=== PATIENT | female | born 1970 | race Caucasian/White ===

== ENCOUNTER 2018-11-01 12:34 | Emergency (ER) | payer OTHER ==
[~2018-11-01] VITALS: Ht 152.4 cm; Wt 73.5 kg
[2018-11-01 12:46] VITALS: BP 136/88
[2018-11-01] MEDS ORDERED: ONDANSETRON PF 4 MG/2 ML VIAL. IV ONE (13:00)
[2018-11-01] MEDS ORDERED: IV NORMAL SALINE 1000ML BAG 1,000 ML IV ONE (13:00)
[2018-11-01] MEDS ORDERED: KETOROLAC 30 MG/ML VIAL. IV ONE (13:00)
[2018-11-01] MEDS ORDERED: FAMOTIDINE 20 MG/2 ML VIAL IVP ONE (13:00)
[2018-11-01 13:22] LABS: BASO # 0.1 x10^3/uL (0.0-0.2); BASO % 1 % (0-3); EOS # 0.1 x10^3/uL (0.0-0.7); EOS % 1 % (0-3); HEMOGLOBIN 13.4 g/dL (12.0-15.5); LYMPH # 1.7 x10^3/uL (1.0-4.8); LYMPH % 11 % (24-48); MEAN CORPUSCULAR HEMOGLOBIN 29 pg (25-35); MEAN CORPUSCULAR HGB CONC 34 g/dL (31-37); MEAN CORPUSCULAR VOLUME 83 fL (79-100); MONO # 1.1 x10^3/uL (0.0-1.1); MONO % 8 % (0-9); NEUT # 11.7 x10^3/uL (1.8-7.7); NEUT % 80 % (31-73); PLATELET COUNT 349 x10^3/uL (140-400); RED BLOOD COUNT 4.68 x10^6/uL (3.50-5.40); RED CELL DISTRIBUTION WIDTH 14.1 % (11.5-14.5); WHITE BLOOD COUNT 14.6 x10^3/uL (4.0-11.0)
[2018-11-01 13:30] LABS: CALCIUM 9.2 mg/dL (8.5-10.1); CREATININE 0.6 mg/dL (0.6-1.0); GFR 106.3; POTASSIUM 4.1 mmol/L (3.5-5.1)
[2018-11-01 13:32] LABS: PROTHROMBIN TIME PATIENT 12.9 SEC (11.7-14.0)
[2018-11-01 13:35] LABS: ALBUMIN 3.3 g/dL (3.4-5.0); ALBUMIN/GLOBULIN RATIO 0.7 (1.0-1.7); MAGNESIUM 2.2 mg/dL (1.8-2.4); TOTAL BILIRUBIN 0.3 mg/dL (0.2-1.0)
[2018-11-01] MEDS ORDERED: METR500T PO (13:58)
[2018-11-01] MEDS ORDERED: ACET-704 PO (13:58)
[2018-11-01] MEDS ORDERED: ONDA4TAB12 PO (13:58)
[2018-11-01] MEDS ORDERED: CIPR500T94 PO (13:58)
--- NOTE | 2018-11-01 13:58 | PHYS DOC ---
Past Medical History Past Medical History: Diverticulitis Past Surgical History: Hysterectomy Alcohol Use: None Drug Use: None Adult General Chief Complaint Chief Complaint: ABDOMINAL PAIN HPI HPI Patient is a 48 year old [f__sex] who presents with [] Review of Systems Review of Systems Constitutional: Denies fever or chills [] Eyes: Denies change in visual acuity, redness, or eye pain [] HENT: Denies nasal congestion or sore throat [] Respiratory: Denies cough or shortness of breath [] Cardiovascular: No additional information not addressed in HPI [] GI: Denies abdominal pain, nausea, vomiting, bloody stools or diarrhea [] : Denies dysuria or hematuria [] Musculoskeletal: Denies back pain or joint pain [] Integument: Denies rash or skin lesions [] Neurologic: Denies headache, focal weakness or sensory changes [] Endocrine: Denies polyuria or polydipsia [] All other systems were reviewed and found to be within normal limits, except as documented in this note. Current Medications Current Medications Current Medications Medications (Trade) Dose Ordered Sig/Carolin Start Time Stop Time Status Last Admin Dose Admin Famotidine (Pepcid Vial) 20 mg 1X ONCE 11/01/18 13:00 11/01/18 13:02 DC 11/01/18 13:24 20 MG Ketorolac Tromethamine (Toradol 30mg Vial) 15 mg 1X ONCE 11/01/18 13:00 11/01/18 13:02 DC 11/01/18 13:24 15 MG Ondansetron HCl (Zofran) 4 mg 1X ONCE 11/01/18 13:00 11/01/18 13:02 DC 11/01/18 13:24 4 MG Sodium Chloride 1,000 ml @ 1,000 mls/hr 1X ONCE 11/01/18 13:00 11/01/18 13:59 11/01/18 13:24 1,000 MLS/HR Allergies Allergies Allergies Coded Allergies Type Severity Reaction Last Updated Verified No Known Drug Allergies 11/01/18 No Physical Exam Physical Exam Constitutional: Well developed, well nourished, no acute distress, non-toxic appearance. [] HENT: Normocephalic, atraumatic, bilateral external ears normal, oropharynx moist, no oral exudates, nose normal. [] Eyes: PERRLA, EOMI, conjunctiva normal, no discharge. [] Neck: Normal range of motion, no tenderness, supple, no stridor. [] Cardiovascular:Heart rate regular rhythm, no murmur [] Lungs & Thorax: Bilateral breath sounds clear to auscultation [] Abdomen: Bowel sounds normal, soft, no tenderness, no masses, no pulsatile masses. [] Skin: Warm, dry, no erythema, no rash. [] Back: No tenderness, no CVA tenderness. [] Extremities: No tenderness, no cyanosis, no clubbing, ROM intact, no edema. [] Neurologic: Alert and oriented X 3, normal motor function, normal sensory function, no focal deficits noted. [] Psychologic: Affect normal, judgement normal, mood normal. [] Current Patient Data Vital Signs Vital Signs Date Time Temp Pulse Resp B/P (MAP) Pulse Ox O2 Delivery O2 Flow Rate FiO2 11/01/18 12:46 97.8 87 16 136/88 (104) 96 Room Air 97.8 Lab Values Laboratory Tests Test 11/01/18 13:10 White Blood Count 14.6 x10^3/uL (4.0-11.0) H Red Blood Count 4.68 x10^6/uL (3.50-5.40) Hemoglobin 13.4 g/dL (12.0-15.5) Hematocrit 39.0 % (36.0-47.0) Mean Corpuscular Volume 83 fL (79-100) Mean Corpuscular Hemoglobin 29 pg (25-35) Mean Corpuscular Hemoglobin Concent 34 g/dL (31-37) Red Cell Distribution Width 14.1 % (11.5-14.5) Platelet Count 349 x10^3/uL (140-400) Neutrophils (%) (Auto) 80 % (31-73) H Lymphocytes (%) (Auto) 11 % (24-48) L Monocytes (%) (Auto) 8 % (0-9) Eosinophils (%) (Auto) 1 % (0-3) Basophils (%) (Auto) 1 % (0-3) Neutrophils # (Auto) 11.7 x10^3/uL (1.8-7.7) H Lymphocytes # (Auto) 1.7 x10^3/uL (1.0-4.8) Monocytes # (Auto) 1.1 x10^3/uL (0.0-1.1) Eosinophils # (Auto) 0.1 x10^3/uL (0.0-0.7) Basophils # (Auto) 0.1 x10^3/uL (0.0-0.2) Prothrombin Time 12.9 SEC (11.7-14.0) Prothrombin Time INR 1.0 (0.8-1.1) Activated Partial Thromboplast Time 32 SEC (24-38) Sodium Level 140 mmol/L (136-145) Potassium Level 4.1 mmol/L (3.5-5.1) Chloride Level 104 mmol/L (98-107) Carbon Dioxide Level 25 mmol/L (21-32) Anion Gap 11 (6-14) Blood Urea Nitrogen 23 mg/dL (7-20) H Creatinine 0.6 mg/dL (0.6-1.0) Estimated GFR (Cockcroft-Gault) 106.3 BUN/Creatinine Ratio 38 (6-20) H Glucose Level 110 mg/dL (70-99) H Lactic Acid Level 0.6 mmol/L (0.4-2.0) Calcium Level 9.2 mg/dL (8.5-10.1) Magnesium Level 2.2 mg/dL (1.8-2.4) Total Bilirubin 0.3 mg/dL (0.2-1.0) Aspartate Amino Transferase (AST) 19 U/L (15-37) Alanine Aminotransferase (ALT) 20 U/L (14-59) Alkaline Phosphatase 116 U/L (46-116) Total Protein 8.0 g/dL (6.4-8.2) Albumin 3.3 g/dL (3.4-5.0) L Albumin/Globulin Ratio 0.7 (1.0-1.7) L Lipase 94 U/L (73-393) Laboratory Tests 11/01/18 13:10 Laboratory Tests 11/01/18 13:10 EKG EKG [] Radiology/Procedures Radiology/Procedures [] Course & Med Decision Making Course & Med Decision Making Pertinent Labs and Imaging studies reviewed. (See chart for details) [] Dragon Disclaimer Dragon Disclaimer This electronic medical record was generated, in whole or in part, using a voice recognition dictation system. Departure Departure Impression: Primary Impression: Abdominal pain Additional Impression: Diverticulitis Condition: STABLE Referrals: UNKNOWN PCP NAME (PCP) NABIL LY MD Patient Instructions: Abdominal Pain (Nonspecific), Diverticulitis, [id number] Scripts Metronidazole (FLAGYL) 500 Mg Tablet 500 MG PO TID, #21 TAB Prov: BRENT BIANCHI DO 11/01/18 Ciprofloxacin Hcl (CIPRO) 500 Mg Tablet 1 TAB PO BID, #14 TAB Prov: BRENT BIANCHI DO 11/01/18 Acetaminophen With Codeine (TYLENOL WITH CODEINE #3 TABLET) 1 Each Tablet 1 TAB PO PRN Q6HRS PRN for PAIN, #10 TAB Prov: BRENT BIANCHI DO 11/01/18 Ondansetron (ONDANSETRON ODT) 4 Mg Tab.rapdis 1 TAB PO PRN Q6-8HRS PRN for NAUSEA, #16 TAB Prov: BRENT BIANCHI DO 11/01/18 Problem Qualifiers Primary Impression: Abdominal pain Abdominal location: left lower quadrant Qualified Codes: R10.32 - Left lower quadrant pain BRENT BIANCHI DO Nov 01, 2018 13:58
[2018-11-01] MEDS ORDERED: CIPROFLOXACIN HCL 250 MG TABLET. PO ONE (14:30)
[2018-11-01] MEDS ORDERED: metroNIDAZOLE 500 MG TABLET PO ONE (14:30)
== END 2018-11-01 14:28 | disposition home or self-care (01) ==
LOC: ER 12:34
DX: K57.92 Diverticulitis of intestine, part unspecified, without perforation or abscess without bleeding (principal); Z90.710 Acquired absence of both cervix and uterus
CPT/HCPCS: 36415; 80053; 83605; 83690; 83735; 85025; 85610; 85730; 96374; 96375; 99284; J1885; J2405; J3490; J7030

== ENCOUNTER 2019-03-06 09:31 | Emergency (ER) | payer OTHER ==
[~2019-03-06] VITALS: Ht 160 cm; Wt 73.5 kg
[~2019-03-06 09:31] MED LIST: ACET-704 PO; CIPR500T94 PO; LEVO500T59 PO; METR500T PO; ONDA4TAB12 PO; TRAM50TA PO
[2019-03-06 10:11] VITALS: BP 176/84
--- NOTE | 2019-03-06 10:40 | PHYS DOC ---
Past Medical History Past Medical History: Diverticulitis Past Surgical History: Hysterectomy Alcohol Use: Rarely Drug Use: None Adult General Chief Complaint Chief Complaint: LOWER EXT PAIN HPI HPI Patient is a 49 year old female with history of diverticulitis presenting to the ED today with complaints of left lower extremity swelling and mild pain that began 5 days ago. Patient denies any trauma. Denies any recent surgeries, denies any recent long in a hole, trouble denies any use of hormones, denies any chest pain or shortness of breath. Review of Systems Review of Systems Constitutional: Denies fever or chills [] Eyes: Denies change in visual acuity, redness, or eye pain [] HENT: Denies nasal congestion or sore throat [] Respiratory: Denies cough or shortness of breath [] Cardiovascular: No additional information not addressed in HPI [] GI: Denies abdominal pain, nausea, vomiting, bloody stools or diarrhea [] : Denies dysuria or hematuria [] Musculoskeletal: Reports lower extremity swelling and pain Integument: Denies rash or skin lesions [] Neurologic: Denies headache, focal weakness or sensory changes [] All other systems were reviewed and found to be within normal limits, except as documented in this note. Allergies Allergies Allergies Coded Allergies Type Severity Reaction Last Updated Verified No Known Drug Allergies 11/01/18 No Physical Exam Physical Exam Constitutional: Well developed, well nourished, no acute distress, non-toxic appearance. [] HENT: Normocephalic, atraumatic, bilateral external ears normal, oropharynx moist, no oral exudates, nose normal. [] Eyes: PERRLA, EOMI, conjunctiva normal, no discharge. [] Neck: Normal range of motion, no tenderness, supple, no stridor. [] Cardiovascular:Heart rate regular rhythm, no murmur [] Lungs & Thorax: Bilateral breath sounds clear to auscultation [] Abdomen: Bowel sounds normal, soft, no tenderness, no masses, no pulsatile masses. [] Skin: Warm, dry, no erythema, no rash. [] Back: No tenderness, no CVA tenderness. [] Extremities: Left lower extremity with moderate swelling worse on the calf region and the foot, the calf feels tight positive Homans sign. +1 left pedal pulse, cap refill less than 2 seconds the left lower extremity. Range of motion is intact Neurologic: Alert and oriented X 3, normal motor function, normal sensory function, no focal deficits noted. [] Psychologic: Affect normal, judgement normal, mood normal. [] Current Patient Data Vital Signs Vital Signs Date Time Temp Pulse Resp B/P (MAP) Pulse Ox O2 Delivery O2 Flow Rate FiO2 03/06/19 10:11 98.5 77 16 176/84 (114) 98 Room Air 98.5 EKG EKG [] Radiology/Procedures Radiology/Procedures []PROCEDURE: VENOUS LOWER EXTREMITY LEFT Examination: Left Lower Extremity Venous Doppler Ultrasound History: Left lower extremity swelling Comparison: None Procedure: Whitehead scale, color flow 2D and spectal waveform analysis images are obtained with and without compression in the area of the common femoral vein, superficial femoral vein - femoral vein junction, main femoral vein (superficial femoral vein) and popliteal vein. Veins of the proximal calf are also imaged. Findings: There is normal duplex flow, color flow and compressibility of all visualized vein segments. No evidence of deep venous thrombus is present. There is a 4.9 cm cystic echogenicity identified in the popliteal region likely popliteal cyst. Inferior to the popliteal cyst, there are two large areas in the posterior calf demonstrating mixed echogenicity measuring 3.2 x 2.3 x 1.7 cm and 9.1 x 4.3 x 2.7 cm, uncertain etiology possibly hematomas or nonvascular masses. Impression: 1. No evidence of deep venous thrombosis left lower extremity. 2. 4.9 cm popliteal cyst. 3. Inferior to the popliteal cyst, there are two large areas in the posterior calf demonstrating mixed echogenicity measuring 3.2 x 2.3 x 1.7 cm and 9.1 x 4.3 x 2.7 cm, uncertain etiology possibly hematomas or nonvascular masses or tendinopathy. Correlate clinically. Electronically signed by: Caden Pearson MD (03/06/2019 10:52 AM) [id number] DICTATED and SIGNED BY: CADEN PEARSON MD DATE: 03/06/19 1052 Course & Med Decision Making Course & Med Decision Making Pertinent Labs and Imaging studies reviewed. (See chart for details) This is a 49-year-old female patient presented to the ED today with left lower extremity pain and swelling, symptoms for 5 days. Venous Doppler of the left lower extremity is negative for DVT. Noted for 4.9 cm popliteal cyst and possible hematoma to the calf. Patient was discharged to home. Follow-up with orthopedic doctor. Ice elevation encouraged. Anti- inflammatories also recommended. Eder bandage also recommended. Dragon Disclaimer Dragon Disclaimer This electronic medical record was generated, in whole or in part, using a voice recognition dictation system. Departure Departure Impression: Primary Impression: Popliteal cyst Disposition: HOME, SELF-CARE Condition: STABLE Referrals: UNKNOWN PCP NAME (PCP) SAMRA LEE MD Follow up in one week Patient Instructions: Hematoma Additional Instructions: You were seen for left lower extremity swelling, you were noted to have popliteal cyst and possible hematoma to the calf. Please get an Eder bandage and apply to the left lower extremity. Try to ice and elevate the extremity. Take anti-inflammatories like ibuprofen as needed for pain. Follow-up with the provided orthopedic doctor in the next 1 week. Problem Qualifiers Primary Impression: Popliteal cyst Laterality: left Qualified Codes: M71.22 - Synovial cyst of popliteal space [[place]], left knee HARMAN [employer]ILL [employer] SUPER[employer]OR Mar 06, 2019 10:40
--- NOTE | 2019-03-06 10:55 | RAD ---
Examination: Left Lower Extremity Venous Doppler Ultrasound History: Left lower extremity swelling Comparison: None Procedure: Whitehead scale, color flow 2D and spectal waveform analysis images are obtained with and without compression in the area of the common femoral vein, superficial femoral vein - femoral vein junction, main femoral vein (superficial femoral vein) and popliteal vein. Veins of the proximal calf are also imaged. Findings: There is normal duplex flow, color flow and compressibility of all visualized vein segments. No evidence of deep venous thrombus is present. There is a 4.9 cm cystic echogenicity identified in the popliteal region likely popliteal cyst. Inferior to the popliteal cyst, there are two large areas in the posterior calf demonstrating mixed echogenicity measuring 3.2 x 2.3 x 1.7 cm and 9.1 x 4.3 x 2.7 cm, uncertain etiology possibly hematomas or nonvascular masses. Impression: 1. No evidence of deep venous thrombosis left lower extremity. 2. 4.9 cm popliteal cyst. 3. Inferior to the popliteal cyst, there are two large areas in the posterior calf demonstrating mixed echogenicity measuring 3.2 x 2.3 x 1.7 cm and 9.1 x 4.3 x 2.7 cm, uncertain etiology possibly hematomas or nonvascular masses or tendinopathy. Correlate clinically. Electronically signed by: Caden Pearson MD (03/06/2019 10:52 AM) [id number]
== END 2019-03-06 11:52 | disposition home or self-care (01) ==
LOC: ER 10:25
DX: M71.22 Synovial cyst of popliteal space [Baker], left knee (principal); Z90.710 Acquired absence of both cervix and uterus
CPT/HCPCS: 93971; 99284-25